=== PATIENT | male | born 2000 | race Caucasian/White ===

== ENCOUNTER 2023-09-23 00:43 | Emergency (ER) | payer OTHER, SELFPAY ==
[2023-09-23] MEDS ORDERED: Ondansetron PF 4 MG/2 ML Vial ONE (02:08)
== END 2023-09-23 02:56 | disposition home or self-care (01) ==
LOC: ERS 00:43
DX: S06.0X9A Concussion with loss of consciousness of unspecified duration, initial encounter (principal); S01.511A Laceration without foreign body of lip, initial encounter; Y04.2XXA Assault by strike against or bumped into by another person, initial encounter; Y93.89 Activity, other specified; Y92.59 Other trade areas as the place of occurrence of the external cause
CPT/HCPCS: 70450; 70486; 72125; 96374; J2405